=== PATIENT | female | born 1970 | race Caucasian/White ===

== ENCOUNTER → 2018-03-04 | Outpatient (CLI) | payer MEDICARE, OTHER ==
[~2018-03-04] MED LIST: BUPIVACAINE MPF 0.25% 10 ML VIAL. ONE; LIDOCAINE 1% PF 30 ML VIAL. ONE
== END ==
LOC: SURG 13:27
PROVIDERS: ATTEND Anesthesiology
DX: M47.816 Spondylosis without myelopathy or radiculopathy, lumbar region (principal); G47.30 Sleep apnea, unspecified; J32.9 Chronic sinusitis, unspecified; E78.5 Hyperlipidemia, unspecified; E07.89 Other specified disorders of thyroid; F32.9 Major depressive disorder, single episode, unspecified; Z87.39 Personal history of other diseases of the musculoskeletal system and connective tissue; Z90.710 Acquired absence of both cervix and uterus; Z90.49 Acquired absence of other specified parts of digestive tract; Z98.890 Other specified postprocedural states
CPT/HCPCS: 64493; 64494; J2001; J3490

== ENCOUNTER → 2018-07-01 | Outpatient (CLI) | payer MEDICARE, OTHER ==
[~2018-07-01] MED LIST changes: +IOHEXOL 300 MG/ML 50 ML VIAL. ONE
== END | disposition home or self-care (01) ==
LOC: SURG 15:10
PROVIDERS: ATTEND Anesthesiology
DX: M53.3 Sacrococcygeal disorders, not elsewhere classified (principal); M47.817 Spondylosis without myelopathy or radiculopathy, lumbosacral region; M79.1 Myalgia; I10 Essential (primary) hypertension; E78.5 Hyperlipidemia, unspecified; F41.9 Anxiety disorder, unspecified; K21.9 Gastro-esophageal reflux disease without esophagitis; E03.9 Hypothyroidism, unspecified; G43.909 Migraine, unspecified, not intractable, without status migrainosus; Z90.710 Acquired absence of both cervix and uterus; K58.9 Irritable bowel syndrome, unspecified; Z82.49 Family history of ischemic heart disease and other diseases of the circulatory system; Z79.899 Other long term (current) drug therapy; G89.4 Chronic pain syndrome; G47.33 Obstructive sleep apnea (adult) (pediatric); Z90.49 Acquired absence of other specified parts of digestive tract; Z98.890 Other specified postprocedural states
CPT/HCPCS: 20550; 77002; J2001; J3490; Q9967; 20605

== ENCOUNTER → 2018-07-22 | Outpatient (CLI) | payer MEDICARE, OTHER ==
[~2018-07-22] MED LIST changes: -BUPIVACAINE MPF 0.25% 10 ML VIAL. ONE; +BUPIVACAINE MPF 0.5% 30 ML VIAL. ONE; -IOHEXOL 300 MG/ML 50 ML VIAL. ONE; +LIDOCAINE 1% PF 2 ML VIAL. ONE; -LIDOCAINE 1% PF 30 ML VIAL. ONE
== END | disposition home or self-care (01) ==
LOC: SURG 14:44
PROVIDERS: ATTEND Anesthesiology
DX: M47.816 Spondylosis without myelopathy or radiculopathy, lumbar region (principal); F32.9 Major depressive disorder, single episode, unspecified; Z79.82 Long term (current) use of aspirin; Z79.899 Other long term (current) drug therapy; G47.33 Obstructive sleep apnea (adult) (pediatric); G62.9 Polyneuropathy, unspecified; M19.90 Unspecified osteoarthritis, unspecified site; Z90.710 Acquired absence of both cervix and uterus; Z98.890 Other specified postprocedural states; Z88.2 Allergy status to sulfonamides; Z88.5 Allergy status to narcotic agent; Z88.6 Allergy status to analgesic agent; Z88.8 Allergy status to other drugs, medicaments and biological substances
CPT/HCPCS: 64493; 64494; J3490

== ENCOUNTER → 2018-08-26 | Outpatient (CLI) | payer MEDICARE, OTHER ==
[~2018-08-26] MED LIST changes: +BUPIVACAINE MPF 0.25% 30 ML VIAL. ONE; -BUPIVACAINE MPF 0.5% 30 ML VIAL. ONE; +DEXAMETHASONE SOD PHOS 4 MG/ML VIAL ONE; +IOHEXOL 300 MG/ML 50 ML VIAL. ONE; -LIDOCAINE 1% PF 2 ML VIAL. ONE; +LIDOCAINE 1% PF 30 ML VIAL. ONE
== END | disposition home or self-care (01) ==
LOC: SURG 10:56
PROVIDERS: ATTEND Anesthesiology
DX: M53.3 Sacrococcygeal disorders, not elsewhere classified (principal); M54.5 Low back pain; M47.817 Spondylosis without myelopathy or radiculopathy, lumbosacral region; I10 Essential (primary) hypertension; E78.5 Hyperlipidemia, unspecified; K21.9 Gastro-esophageal reflux disease without esophagitis; E03.9 Hypothyroidism, unspecified; F41.9 Anxiety disorder, unspecified; M79.7 Fibromyalgia; K58.9 Irritable bowel syndrome, unspecified; G43.909 Migraine, unspecified, not intractable, without status migrainosus; G89.4 Chronic pain syndrome; Z90.710 Acquired absence of both cervix and uterus; Z79.899 Other long term (current) drug therapy; Z82.49 Family history of ischemic heart disease and other diseases of the circulatory system
CPT/HCPCS: 64999; J1100; J2001; J3490; Q9967

== ENCOUNTER → 2018-09-30 | Outpatient (CLI) | payer MEDICARE, OTHER | END | disposition home or self-care (01) | LOC: SURG 13:43 | PROVIDERS: ATTEND Anesthesiology | DX: M47.816 Spondylosis without myelopathy or radiculopathy, lumbar region (principal); I10 Essential (primary) hypertension; K58.9 Irritable bowel syndrome, unspecified; K21.9 Gastro-esophageal reflux disease without esophagitis; M79.7 Fibromyalgia; F41.9 Anxiety disorder, unspecified; Z90.710 Acquired absence of both cervix and uterus; Z88.2 Allergy status to sulfonamides; Z88.5 Allergy status to narcotic agent; Z88.6 Allergy status to analgesic agent; Z88.8 Allergy status to other drugs, medicaments and biological substances | CPT/HCPCS: 64493; 64494 ==

== ENCOUNTER → 2020-12-30 | Outpatient (CLI) | payer MEDICARE, OTHER ==
--- NOTE | 2020-12-30 11:50 | RAD ---
CT HEAD WITHOUT CONTRAST 12/30/2020 10:30 AM Indication: Reason: CHRONIC PERSISTENT FRONTAL HEADACHE / Spl. Instructions: / History: Comparison: None Procedure: Multidetector CT imaging of the head was performed without the administration of contrast. Findings: There is no evidence of acute intracranial hemorrhage. There is no evidence of acute territ orial infarction. Please note that CT is limited for evaluation of acute ischemia. No mass effect or midline shift is identified . The ventricles and basilar cisterns have an appropriate appearance. No abnormal extra-axial fluid collections are seen. No acute osseous changes are identified. Impression: No evidence of acute intracranial abnormality CT DOSING PQRS STATEMENT: One or more of the following individualized dose reduction techniques were utilized for this examinat ion: 1. Automated exposure control 2. Adjustment of the mA and/or kV according to patient size 3. Use of iterative reconstruction technique Electronically signed by: Vic Ashley MD (12/30/2020 11:48 AM) [id number]
== END ==
LOC: CT 10:20
DX: R51.9 Headache, unspecified (principal)
CPT/HCPCS: 70450

== ENCOUNTER 2021-01-09 10:14 | Observation (INO) | payer MEDICARE, OTHER ==
[~2021-01-09] VITALS: Ht 172.7 cm; Wt 114.0 kg
--- NOTE | 2021-01-09 10:55 | PHYS DOC ---
Past History Past Medical History: Other Past Surgical History: Cholecystectomy, Hysterectomy, Other Additional Past Surgical Histo: hernia repairs Alcohol Use: None Adult General Chief Complaint Chief Complaint: SLURRED SPEECH HPI HPI Patient is a 50yo female presenting from outpatient radiology visit for weakness. She was in the process of having a barium swallow study performed when she became weak, dizzy and diaphoretic. Nothing known made better or worse. She denied any pain besides baseline fribromyalgia pains. Timing of symptoms was constant and steady since onset. She was subsequently put onto an ER bed and transported into the ER for evaluation. She denies any recent changes in health or medication, no sick contacts, no recent travel or concerning ingestions. Denies fever, CP, SHOB, AP, dysuria or other focal neuro deficits. Review of Systems Review of Systems 14 point ROS were reviewed and found to be within normal limits, except as documented in this note. Allergies Allergies Allergies Coded Allergies Type Severity Reaction Last Updated Verified oxycodone Allergy Severe 01/09/21 Yes triamcinolone Allergy Mild Muscle deterioration 01/09/21 Yes iohexol Adverse Reaction Intermediate swelling in throat 01/09/21 Yes topiramate Adverse Reaction Intermediate severe neuropthy 01/09/21 Yes tramadol Adverse Reaction Mild nausea 01/09/21 Yes Uncoded Allergies Type Severity Reaction Last Updated Verified ANESTHETICS Allergy Severe stops breathing 01/09/21 CODIENE Allergy Severe 01/09/21 DERMEROL Allergy Severe forgets to breath 01/09/21 REGOLEN Allergy Severe SOB CP 01/09/21 RELPLAX Allergy Intermediate CP muscle weakness 01/09/21 Physical Exam Physical Exam Constitutional: Well developed, well nourished, pale and diaphoretic speaking in few word sentences HENT: Normocephalic, atraumatic, bilateral external ears normal, oropharynx moist, no oral exudates, nose normal. [] Eyes: PERRLA, EOMI, conjunctiva normal, no discharge. [] Neck: Normal range of motion, no tenderness, supple, no stridor. [] Cardiovascular:Heart rate regular rhythm, no murmur [] Lungs & Thorax: Bilateral breath sounds clear to auscultation [] Abdomen: Bowel sounds normal, soft, no tenderness, no masses, no pulsatile masses. [] Skin: Warm, clammy, no erythema, no rash. [] Back: No tenderness, no CVA tenderness. [] Extremities: No tenderness, no cyanosis, no clubbing, ROM intact, no edema. [] Neurologic: Alert and oriented X 3, normal motor function, normal sensory function, no focal deficits noted. CN 2-12 intact. Slowed speech production without slurring or other concerning abnormalities. NIHSS 0 [] Psychologic: Odd affect, mood normal. [] Current Patient Data Vital Signs Vital Signs Date Time Temp Pulse Resp B/P (MAP) Pulse Ox O2 Delivery O2 Flow Rate FiO2 01/09/21 10:18 98.1 76 20 139/81 (100) 95 Room Air Lab Results Laboratory Tests Test 01/09/21 10:17 Glucose (Fingerstick) 110 mg/dL (70-99) H EKG EKG EKG ordered and interpreted by myself at 1055 hrs. as sinus rhythm at 72 bpm, QTC 451 otherwise unremarkable intervals, no axis deviation, no acute ischemic findings, no STEMI Radiology/Procedures Radiology/Procedures PROCEDURE: PORTABLE CHEST 1V Single view of the chest. 01/09/2021 11:10 AM Indication: Reason: AMS / Spl. Instructions: / History: Comparison: 2 views of the chest November 20, 2011 Findings: There is no pneumothorax or pleural effusion no focal infiltrate is seen. Heart size is normal. Oral contrast appears to be present within the distal esophagus but is poorly visualized. Small bowel series from same day noted in the PACS. Postoperative changes to the right shoulder noted. No acute osseous changes are identified. IMPRESSION: No radiographic evidence of acute cardiopulmonary process Electronically signed by: Vic Ashley MD (01/09/2021 11:38 AM) [id number] Heart Score C/O Chest Pain: No HEART Score for Chest Pain: HEART Score for Chest Pain Response (Comments) Value History Moderately Suspicious 1 ECG Normal 0 Age >45 - < 65 1 Risk Factors 1 or 2 Risk Factors 1 Troponin < Normal Limit 0 Total 3 Risk Factors: Risk Factors: DM, Current or recent (<one month) smoker, HTN, HLP, family history of CAD, obesity. Risk Scores: Risk Factors: DM, Current or recent (<one month) smoker, HTN, HLP, family history of CAD, obesity. Course & Med Decision Making Course & Med Decision Making Hemodynamically stable patient with history and physical exam concerning for near-syncope. Comprehensive workup performed and grossly non-concerning presented at bedside and confirms HPI. States patient had been NPO prior to study. Admits patient has had self limiting episodes like this in the past and has seen [facility] and other numerous specialists without answers General concern for discharge home given that patient is not back at baseline. As such, I recommended hospital admission given ongoing weakness and inability to care for self or for to fully care for patient I discussed case with Dr. Mandujano who accepted patient under his care for observation at [facility] I updated patient and on proposed plan of care and they were amenable, all questions and concerns addressed prior to ED departure from transport to [facility] for admission Dragon Disclaimer Dragon Disclaimer This electronic medical record was generated, in whole or in part, using a voice recognition dictation system. Departure Departure: Impression: Primary Impression: Near syncope Additional Impression: Weakness Disposition: 09 ADMITTED INPT THIS HOSP Admitting Physician: Ayana Mandujano Condition: STABLE Referrals: TACOS VANEGAS (PCP) Problem Qualifiers LINDSAY NUNN DO Jan 09, 2021 10:55
[2021-01-09] MEDS ORDERED: IV NORMAL SALINE 1,000ML 1,000 ML IV ONE (11:00)
[2021-01-09 11:09] LABS: CREATININE 0.9 mg/dL (0.6-1.0); GFR 66.8; POTASSIUM 4.6 mmol/L (3.5-5.1)
[2021-01-09 11:21] LABS: ALBUMIN 3.8 g/dL (3.4-5.0); ALBUMIN/GLOBULIN RATIO 1.2 (1.0-1.7); TOTAL BILIRUBIN 0.2 mg/dL (0.2-1.0)
[2021-01-09 11:29] LABS: BASO % 1 % (0-3); EOS # 0.1 x10^3/uL (0.0-0.7); EOS % 2 % (0-3); HEMATOCRIT 37.6 % (36.0-47.0); HEMOGLOBIN 12.8 g/dL (12.0-15.5); LYMPH # 2.7 x10^3/uL (1.0-4.8); LYMPH % 39 % (24-48); MEAN CORPUSCULAR HEMOGLOBIN 31 pg (25-35); MEAN CORPUSCULAR HGB CONC 34 g/dL (31-37); MEAN CORPUSCULAR VOLUME 90 fL (79-100); MONO # 0.6 x10^3/uL (0.0-1.1); MONO % 9 % (0-9); NEUT # 3.5 x10^3uL (1.8-7.7); NEUT % 50 % (31-73); PLATELET COUNT 237 x10^3/uL (140-400); RED BLOOD COUNT 4.19 x10^6/uL (3.50-5.40); RED CELL DISTRIBUTION WIDTH 13.1 % (11.5-14.5)
--- NOTE | 2021-01-09 11:40 | RAD ---
Single view of the chest. 01/09/2021 11:10 AM Indication: Reason: AMS / Spl. Instructions: / History: Comparison: 2 views of the chest November 20, 2011 Findings: There is no pneumothorax or pleural effusion no focal infiltrate is seen. Heart size is nor mal. Oral contrast appears to be present within the distal esophagus but is poorly visualized. Small bowel series from same day noted in the PACS. Postoperative changes to the right shoulder noted. No a cute osseous changes are identified. IMPRESSION: No radiographic evidence of acute cardiopulmonary process Electronically signed by: Vic Ashley MD (01/09/2021 11:38 AM) [id number]
[2021-01-09 13:54] VITALS: BP 123/82
[2021-01-09 14:46] VITALS: BP 97/55
[2021-01-09 14:47] VITALS: BP 51/36
[2021-01-09] MEDS ORDERED: LEVE10007 PO (14:49)
[2021-01-09] MEDS ORDERED: PANT40TA6 PO (14:49)
[2021-01-09] MEDS ORDERED: MELA10TA2 PO (14:49)
[2021-01-09] MEDS ORDERED: GABA600T7 PO (14:49)
[2021-01-09] MEDS ORDERED: CLON1TAB PO (14:49)
[2021-01-09] MEDS ORDERED: ZOLP12.52 PO (14:49)
[2021-01-09] MEDS ORDERED: ATOR10TA60 PO (14:49)
[2021-01-09] MEDS ORDERED: CELE100C PO (14:49)
[2021-01-09] MEDS ORDERED: VENL225T PO (14:49)
[2021-01-09] MEDS ORDERED: DOCU100T5 PO (14:49)
[2021-01-09] MEDS ORDERED: LINA290C PO (14:49)
[2021-01-09] MEDS ORDERED: OXYC1TAB22 PO (14:49)
[2021-01-09] MEDS ORDERED: DEXT20TA2 PO (14:49)
[2021-01-09] MEDS ORDERED: CLON-276 PO (14:49)
[2021-01-09] MEDS ORDERED: CYAN500T17 PO (14:49)
[2021-01-09] MEDS ORDERED: CALC-31 PO (14:49)
[2021-01-09] MEDS ORDERED: METO-239 PO (14:49)
[2021-01-09] MEDS ORDERED: AZEL137S3 NS (14:49)
[2021-01-09] MEDS ORDERED: LEVO50TA5 PO (14:49)
--- NOTE | 2021-01-09 14:54 | EKG ---
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
[2021-01-09] MEDS ORDERED: AZELASTINE NASAL SPRAY 30ML BOTTLE. NS PRN (16:30)
[2021-01-09] MEDS ORDERED: DOCUSATE SODIUM 100 MG CAPSULE PO PRN (16:45)
[2021-01-09] MEDS: oxyCODONE/APAP 10/325 1 TAB TABLET PO PRN ×2 (16:58→21:06)
[2021-01-09] MEDS ORDERED: ZOLPIDEM 5 MG TABLET. PO PRN (17:00)
[2021-01-09] MEDS: IV NORMAL SALINE 1,000ML 1,000 ML IV SCH (17:05)
--- NOTE | 2021-01-09 17:32 | HP ---
ADMIT DATE: 01/09/2021 HISTORY OF PRESENT ILLNESS: The patient is a 50-year-old female patient who apparently was at [facility] x-ray department for a barium swallow that was ordered by Dr. Thorpe as the patient has severe adhesions and apparently this procedure was ordered to decide whether she needs any surgical intervention, adhesion lysis. She apparently drank her barium and they took few pictures and then the patient became very sweaty, trouble talking and walking and therefore, she was sent down to the Emergency Room for further evaluation and treatment. She was extensively investigated and has had lab work as well as imaging and was admitted for further evaluation. According to her, she has been n.p.o. from midnight last night and she has not eaten or drank anything in preparation for this barium swallow and follow through. PAST MEDICAL HISTORY: Significant for chronic abdominal pain that has been going on since he was a teenager. She has irritable bowel syndrome and chronic constipation. Apparently, she has had left ovary removed in April [address] Irma Ortiz at [facility] and since then, her pain has worsened. According to her she has not had any bowel movement for the last 4 days and about half an hour ago she had only small liquidy bowel movement. PAST MEDICAL HISTORY: Significant for hypertension, hyperlipidemia, irritable bowel syndrome, chronic pain syndrome, chronic fatigue syndrome, fibromyalgia, fatty liver, hypothyroidism, obstructive sleep apnea, and obesity hypoventilation syndrome. 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 PAST SURGICAL HISTORY: Significant for 2 hiatal hernias. She has cholecystectomy, total abdominal hysterectomy, 6 laparoscopic surgery for endometriosis. 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 ALLERGIES: THE PATIENT HAS AN EXTENSIVE LIST OF ALLERGIES INCLUDING ANESTHETICS, ____ CODEINE, ELETRIPTAN, IOHEXOL, LEVOFLOXACIN, MEPERIDINE, METHADONE, METOCLOPRAMIDE, OXYCODONE, TIZANIDINE, TOPIRAMATE, TRAMADOL AND TRIAMCINOLONE. MEDICATIONS: She is currently on following medications: She is on atorvastatin calcium 10 mg once a day, clonidine 0.2 mg twice a day, metoprolol succinate 25 mg once a day, Celebrex 100 mg once a day, oxycodone/APAP 10/325 one tablet every 4 hours as needed. She is on clonazepam 1 mg 3 times a day, gabapentin 600 mg twice a day, levetiracetam 1000 mg twice a day, venlafaxine 225 mg daily, dextromethorphan for Adderall 20 mg daily. She is on Ambien 12.5 mg at bedtime. She is on calcium carbonate with vitamin D3 1 tablet twice a day, azelastine 2 sprays to each nostril twice a day, Colace 100 mg twice a day, Protonix 40 mg twice a day, linaclotide or Linzess 290 mcg capsules daily, levothyroxine sodium 50 mcg once a day, cyanocobalamin for vitamin B12 500 mcg once a day. She is on melatonin 10 mg at bedtime. FAMILY HISTORY: She has one half-sister. Her father at the age of 42 because of myocardial infarction. Mother is still alive at the age of 78 and she has peripheral vascular disease, coronary artery disease, and skin cancer. SOCIAL HISTORY: She is , has 1 son. She never smoked, does not drink alcohol or use any recreational drugs. 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 However, she is disabled since she was with her son. REVIEW OF SYSTEMS: The patient denied any blurring of vision, cataract, glaucoma or macular degeneration. Denied any earache, tinnitus or sensorineural deafness. Denied any nosebleeds, stuffy nose or postnasal drip. Denied any sore throat, sore tongue, toothache. Does have hoarseness of voice, but denied any nausea or vomiting, diarrhea. She did have obviously chronic constipation. Denied any dysuria, frequency or hematuria. Denied any chest pain, shortness of breath. Did complain of near syncope and weakness. PHYSICAL EXAMINATION: GENERAL: On arrival to the Emergency Room, the patient looked well and was clearly in no apparent respiratory distress. No pallor, jaundice, cyanosis or thyromegaly. No jugular venous distension. No limb edema. VITAL SIGNS: Her heart rate was 76, blood pressure was 139/81, temperature was 98.1, respiratory rate 20, and oxygen saturation was 95% on room air. HEAD, EYES, EARS, NOSE AND THROAT: Showed normocephalic, atraumatic. NECK: Supple. HEART: Showed normal first and second heart sounds. No gallop, rub or murmur. CHEST: Clear to auscultation. No crepitation or rhonchi. ABDOMEN: Distended, soft, nontender. No guarding or rigidity. No organomegaly. All hernial orifice intact. Bowel sounds normal. NEUROLOGIC: She was awake, alert, responding appropriately. All cranial nerves intact. EXTREMITIES: She moves extremities without difficulty. She does have hoarseness of voice. LABORATORY DATA: Showed a white cell count 7000, hemoglobin 12.8, hematocrit 37.6, MCV 90 and platelet count 237,000 with normal manual differential. Her chemistry showed a serum sodium 141, potassium 4.6, chloride 105, bicarbonate 30, anion gap of 6, BUN 10, creatinine 0.9, estimated GFR was 66 mL per minute. Her glucose 105, calcium was 9. Total bilirubin, AST, ALT, alkaline phosphatase were normal. Her ammonia was less than 10. Her total protein was 7, albumin was 3.8. Her chest x-ray showed there is no pneumothorax, pleural effusion, no focal infiltrate is seen. Heart size is normal. Oral contrast appears to be present within the distal esophagus, but is poorly visualized. Small bowel loop series from same day noted in the ____, postoperative changes to the right shoulder noted. No acute osseous changes are identified. The patient was admitted with near syncope and generalized weakness. She has received 1 liter of normal saline. I will continue with IV fluid. I reconciled all her medications. We will continue with IV fluid and decide the further management accordingly. ANN POTTER MD DR: WILLIAM/bayron JOB#: [id number] / [id number]
[2021-01-09 19:20] VITALS: BP 149/93
[2021-01-09] MEDS ORDERED: ATORVASTATIN CALCIUM 10 MG TABLET. PO SCH (21:00)
[2021-01-09] MEDS ORDERED: MELATONIN 3 MG TABLET PO SCH (21:00)
[2021-01-09] MEDS: cloNIDine HCL 0.2 MG TABLET PO SCH (21:05)
[2021-01-09] MEDS: clonazePAM 1 MG TABLET PO SCH (21:05)
[2021-01-09] MEDS: levETIRAcetam 500 MG TABLET PO SCH (21:05)
[2021-01-09] MEDS: GABAPENTIN 300 MG CAPSULE. PO SCH (21:06)
[2021-01-09] MEDS: PANTOPRAZOLE 40 MG TABLET. PO SCH (21:06)
[2021-01-09] MEDS: CALCIUM CARB/VIT D3 500/200 TABLET PO SCH (21:06)
[2021-01-09] MEDS: VENLAFAXINE 75 MG TABLET. PO SCH (21:10)
[2021-01-09] MEDS: LUBIPROSTONE 24 MCG CAPSULE PO SCH (21:10)
[2021-01-09 21:29] VITALS: BP 148/96
[2021-01-09 23:07] VITALS: BP 133/80
[2021-01-09 23:31] LABS: BILIRUBIN,URINE NEG (NEG); CLARITY,URINE CLEAR; COLOR,URINE YELLOW; GLUCOSE,URINE NEG (NEG); NITRITE,URINE NEG (NEG); UROBILINOGEN,URINE 0.2 mg/dL (0.2 mg/dL)
[2021-01-09 23:35] LABS: BACTERIA,URINE 0 /HPF (0-FEW); RBC,URINE 0 /HPF (0-2); SQUAMOUS EPITHELIAL CELL,UR FEW /LPF; WBC,URINE RARE /HPF (0-4)
[2021-01-09 23:37] LABS: BARBITURATES NEG (NEG); BENZODIAZEPINES NEG (NEG); CANNABINOIDS NEG (NEG); COCAINE NEG (NEG); METHADONE NEG (NEG); OPIATES NEG (NEG); PHENCYCLIDINE NEG (NEG)
[2021-01-09 23:39] LABS: AMPHETAMINE/METHAMPHETAMINE NEG (NEG)
[2021-01-10] MEDS: oxyCODONE/APAP 10/325 1 TAB TABLET PO PRN ×4 (02:11→15:42)
[2021-01-10] MEDS: IV NORMAL SALINE 1,000ML 1,000 ML IV SCH (02:45)
[2021-01-10 05:16] VITALS: BP 139/72
[2021-01-10] MEDS ORDERED: LEVOTHYROXINE 50 MCG TABLET PO SCH (06:00)
[2021-01-10 07:00] LABS: HEMATOCRIT 37.8 % (36.0-47.0); HEMOGLOBIN 12.5 g/dL (12.0-15.5); RED BLOOD COUNT 4.19 x10^6/uL (3.50-5.40); RED CELL DISTRIBUTION WIDTH 13.4 % (11.5-14.5); WHITE BLOOD COUNT 7.5 x10^3/uL (4.0-11.0)
[2021-01-10 07:19] LABS: ALBUMIN 3.3 g/dL (3.4-5.0); C REACTIVE PROTEIN 2.3 mg/L (0-3.3); CALCIUM 8.7 mg/dL (8.5-10.1); CREATININE 0.8 mg/dL (0.6-1.0); GFR 76.6; POTASSIUM 4.1 mmol/L (3.5-5.1); TOTAL BILIRUBIN 0.4 mg/dL (0.2-1.0); TOTAL PROTEIN 6.6 g/dL (6.4-8.2)
[2021-01-10] MEDS: GABAPENTIN 300 MG CAPSULE. PO SCH (08:17)
[2021-01-10] MEDS: levETIRAcetam 500 MG TABLET PO SCH (08:17)
[2021-01-10] MEDS: clonazePAM 1 MG TABLET PO SCH ×2 (08:17→15:43)
[2021-01-10] MEDS: CALCIUM CARB/VIT D3 500/200 TABLET PO SCH (08:17)
[2021-01-10] MEDS: PANTOPRAZOLE 40 MG TABLET. PO SCH (08:18)
[2021-01-10] MEDS: VENLAFAXINE 75 MG TABLET. PO SCH ×2 (08:18→15:43)
[2021-01-10] MEDS: LUBIPROSTONE 24 MCG CAPSULE PO SCH (08:18)
[2021-01-10] MEDS: cloNIDine HCL 0.2 MG TABLET PO SCH (08:18)
[2021-01-10] MEDS ORDERED: FLU VACC QS 2020-21(6MOS+)/PF 0.5 ML SYRINGE. VAX IM ONE (09:00)
[2021-01-10] MEDS ORDERED: NON FORMULARY ITEM (Dextroamphetamine/Amphetamine (Adderall 20 Mg Tablet) 1 TAB) PO SCH (09:00)
[2021-01-10] MEDS ORDERED: CYANOCOBALAMIN (VITAMIN B-12) 250 MCG TABLET. PO SCH (09:00)
[2021-01-10] MEDS ORDERED: CELECOXIB 100 MG CAPSULE PO SCH (09:00)
[2021-01-10] MEDS ORDERED: METOPROLOL SUCC 24HR ER 25 MG TAB.ER.24H. PO SCH (09:00)
[2021-01-10 10:25] VITALS: BP 143/79
--- NOTE | 2021-01-10 16:11 | DS ---
DATE OF DISCHARGE: 01/10/2021 HOSPITAL COURSE: The patient is a 50-year-old female patient who was seen initially at [facility] X-Ray Department for a barium swallow and follow-through ordered by Dr. Thorpe. The patient had severe abdominal pain due to adhesion and apparently this procedure was ordered to decide whether she needs any surgical intervention in the form of adhesiolysis. She apparently drank her barium and took few pictures and then the patient became very sweaty, having trouble talking and walking and, therefore, she was sent down to the Emergency Department for further evaluation. She was extensively investigated; however, all her lab work was mostly unremarkable. According to the patient, she has been n.p.o. from midnight the night before and she has not eaten or drank anything in preparation for this barium swallow. She was evaluated in the Emergency Room and she was treated with IV fluid and was continued on all her medications. She did very well. She is now eating and drinking. Apart from migraine headache, she denied any complaint. PHYSICAL EXAMINATION: GENERAL: When I saw her this afternoon, she looked well and was clearly in no apparent respiratory distress. No pallor, jaundice, or cyanosis. No lymphadenopathy, no thyromegaly. No jugular venous distention. No lower limb edema. VITAL SIGNS: Her heart rate was 79, blood pressure 143/79, temperature 97.4, respiratory rate 20, and oxygen saturation was 95%. HEAD, EYES, EARS, NOSE AND THROAT: Normocephalic, atraumatic. NECK: Supple. HEART: Showed normal first and second heart sounds. No gallop, rub, or murmur. CHEST: Clear to auscultation. No crepitation or rhonchi. ABDOMEN: Distended, soft, nontender. No guarding or rigidity. No organomegaly. All hernial orifices intact. Bowel sounds normal. NEUROLOGIC: She was awake, alert, and responding appropriately. All cranial nerves intact. EXTREMITIES: She moves extremities without difficulty. She ambulates without assistance or assistive devices. LABORATORY DATA: This morning showed a white cell count of 7500, hemoglobin 12.5, hematocrit 37.8, MCV 90, and platelet count 236,000. Her serum sodium was 142, potassium 4.1, chloride 105, bicarbonate 27, anion gap of 10, BUN 11, creatinine 0.8, estimated GFR was 76 mL per minute. Her glucose was 95, calcium was 8.7. Total bilirubin, AST, ALT, and alkaline phosphatase were normal. Total protein was 6.6, albumin was 3.3. Her ammonia was 11 and C-reactive protein was only 2.3. Urinalysis essentially unremarkable and urine toxic screen was negative. DISCHARGE MEDICATIONS: The patient was discharged home to continue on all her medication including atorvastatin calcium 10 mg at bedtime, azelastine 2 sprays to each nostril twice a day, calcium carbonate with vitamin D one tablet twice a day, Celebrex 100 mg daily, clonazepam for Klonopin 1 mg tablet three times a day, clonidine 0.2 mg twice a day. She is on Adderall 20 mg daily, Colace 100 mg twice a day, gabapentin 600 mg twice a day, levetiracetam 1000 mg twice a day, levothyroxine sodium 50 mcg once a day, linaclotide Linzess 290 mcg once a day, melatonin 10 mg at bedtime, metoprolol succinate 25 mg daily, oxycodone/APAP 10/325 one tablet every 4 hours, Protonix 40 mg once a day, venlafaxine 225 mg once a day, and zolpidem tartrate 12.5 mg at bedtime. FINAL DISCHARGE DIAGNOSES: 1. Dizziness and lightheadedness improved. 2. The patient has a multitude of medical problems including: A. Hypertension. B. Hyperlipidemia. C. Irritable bowel syndrome. D. Chronic pain syndrome. E. Chronic fatigue syndrome. F. Fibromyalgia. G. Fatty liver. H. Hypothyroidism. I. Obstructive sleep apnea and obesity hypoventilation syndrome. ANN POTTER MD DR: WILLIAM/bayron JOB#: [id number] / [id number]
== END 2021-01-10 16:30 | disposition home or self-care (01) ==
LOC: ER 10:14 → 1 SOUTH 11:50
PROVIDERS: ADMIT Internal Medicine; ATTEND Internal Medicine
DX: R55 Syncope and collapse (principal); R53.1 Weakness; K58.9 Irritable bowel syndrome, unspecified; K59.00 Constipation, unspecified; I10 Essential (primary) hypertension; K76.0 Fatty (change of) liver, not elsewhere classified; G47.33 Obstructive sleep apnea (adult) (pediatric); E66.01 Morbid (severe) obesity due to excess calories; E03.9 Hypothyroidism, unspecified; E78.5 Hyperlipidemia, unspecified; M79.7 Fibromyalgia; G89.4 Chronic pain syndrome; Z68.38 Body mass index [BMI] 38.0-38.9, adult; Z90.710 Acquired absence of both cervix and uterus; Z90.721 Acquired absence of ovaries, unilateral; Z93.4 Other artificial openings of gastrointestinal tract status; Z90.49 Acquired absence of other specified parts of digestive tract; Z98.890 Other specified postprocedural states; Z79.899 Other long term (current) drug therapy; Z23 Encounter for immunization
CPT/HCPCS: 36415; 71045; 80053; 80307; 81001; 82140; 82947; 83880; 84484; 85025; 85027; 86140; 90471; 90686; 93005; 96360; 96361; 99285; G0378; J7030; G0379

== ENCOUNTER → 2021-01-09 | Outpatient (CLI) | payer MEDICARE, OTHER ==
[~2021-01-09] MED LIST changes: +ATOR10TA60 PO; +AZEL137S3 NS; -BUPIVACAINE MPF 0.25% 30 ML VIAL. ONE; +CALC-31 PO; +CELE100C PO; +CLON-276 PO; +CLON1TAB PO; +CYAN500T17 PO; -DEXAMETHASONE SOD PHOS 4 MG/ML VIAL ONE; +DEXT20TA2 PO; +DOCU100T5 PO; +GABA600T7 PO; -IOHEXOL 300 MG/ML 50 ML VIAL. ONE; +LEVE10007 PO; +LEVO50TA5 PO; -LIDOCAINE 1% PF 30 ML VIAL. ONE; +LINA290C PO; +MELA10TA2 PO; +METO-239 PO; +OXYC1TAB22 PO; +PANT40TA6 PO; +VENL225T PO; +ZOLP12.52 PO
--- NOTE | 2021-01-09 17:09 | RAD ---
Small Bowel Series: History: Abdominal pain Comparison: None available FINDINGS: The preliminary film demonstrates moderate amount of stool identified in the colon. The bowel gas pat tern unremarkable.. Following administration of oral barium, images were performed at timed intervals . Examination is limited as the examination was terminated as patient went to the ER for dizziness.. The duodenal loop appears normal. The small bowel mucosal pattern is normal. There is no stricture or dilatation. The terminal ileum appears normal. Impression: Limited examination as described above. Electronically signed by: Kendrick Rondon MD (01/09/2021 5:07 PM) [id number]
== END ==
LOC: RAD 08:37
PROVIDERS: ATTEND Internal Medicine Gastroenterology
DX: R10.9 Unspecified abdominal pain (principal); K75.81 Nonalcoholic steatohepatitis (NASH)
CPT/HCPCS: 74250

== ENCOUNTER 2021-02-09 16:13 | Emergency (ER) | payer MEDICARE, OTHER ==
[~2021-02-09] VITALS: Ht 172.7 cm; Wt 110.5 kg
[2021-02-09] MEDS ORDERED: KETOROLAC 30 MG/ML VIAL. IVP ONE (17:15)
[2021-02-09] MEDS ORDERED: PROCHLORPERAZINE 10 MG/2 ML VIAL. IVP ONE (17:15)
[2021-02-09] MEDS ORDERED: diphenhydrAMINE 50 MG/ML VIAL IVP ONE (17:15)
[2021-02-09] MEDS ORDERED: FAMOTIDINE 20 MG/2 ML VIAL IVP ONE (17:15)
[2021-02-09] MEDS ORDERED: DEXAMETHASONE SOD PHOS 10 MG/ML VIAL. IVP ONE (17:15)
[2021-02-09] MEDS ORDERED: IV NORMAL SALINE 1,000ML 1,000 ML IV SCH (17:15)
--- NOTE | 2021-02-09 17:21 | PHYS DOC ---
Past History Past Medical History: Fibromyalgia, IBS Additional Past Medical Histor: esohageal narrowing, (JAMES RANGEL BLENDING OPERATOR) Past Surgical History: Cholecystectomy, Hysterectomy Additional Past Surgical Histo: hernia repair, Endometriosis, right shoulder surgery, wisdom teeth removal, (JAMES RANGEL BLENDING OPERATOR) Alcohol Use: None (JAMES RANGEL APRN) General Adult EDM: Chief Complaint: MULTIPLE COMPLAINTS HPI: HPI: Patient is a 50 year old female who presents with this starting this morning began having a left-sided frontal lobe headache that does not radiate and she states it is up there as the one of the worst headaches of her life. Patient also complains of right upper abdominal pain that sharp and dull type pain. There is no radiation of this pain. She states she is also vomiting and cannot keep down water. She states that she took Percocet today. (JAMES RANGEL BLENDING OPERATOR) Review of Systems: Review of Systems: Constitutional: Denies fever or chills Eyes: Denies change in visual acuity HENT: Denies nasal congestion or sore throat. + Sneezing Respiratory: Denies cough or shortness of breath Cardiovascular: Denies chest pain or edema GI: + abdominal pain, +nausea, +vomiting, denies bloody stools or diarrhea : Denies dysuria Musculoskeletal: Denies back pain or joint pain Integument: + Bilateral arms itchy rash Neurologic: +headache, denies focal weakness or sensory changes Endocrine: Denies polyuria or polydipsia Lymphatic: Denies swollen glands Psychiatric: Denies depression or anxiety (JAMES RANGEL APRN) Allergies: Allergies: Allergies Coded Allergies Type Severity Reaction Last Updated Verified Anesthetics - Amide Type - Select A Allergy Severe Stops breathing, pt doesn't know specific anesthetic 01/09/21 Yes Anesthetics - Jayde Type- Parabens Allergy Severe Stops breathing, pt doesn't know specific anesthetic 01/09/21 Yes codeine Allergy Severe 01/09/21 Yes meperidine Allergy Severe "forgets to breathe" 01/09/21 Yes metoclopramide Allergy Severe SOB, CP 01/09/21 Yes oxycodone Allergy Severe 01/09/21 Yes eletriptan Allergy Intermediate CP, MUSCLE WEAKNESS 01/09/21 Yes methadone Allergy Intermediate chest pain 01/09/21 Yes tizanidine Allergy Intermediate disorientation 01/09/21 Yes triamcinolone Allergy Mild Muscle deterioration 01/09/21 Yes iohexol Adverse Reaction Intermediate swelling in throat 01/09/21 Yes topiramate Adverse Reaction Intermediate severe neuropthy 01/09/21 Yes tramadol Adverse Reaction Mild nausea 01/09/21 Yes levofloxacin Adverse Reaction Unknown joint pain and swelling 01/09/21 Yes (JAMES RANGEL APRN) Physical Exam: PE: Constitutional: Well developed, well nourished, no acute distress, non-toxic appearance. [] HENT: Normocephalic, atraumatic, bilateral external ears normal, oropharynx moist, no oral exudates, nose normal. [] Eyes: PERRLA, EOMI, conjunctiva normal, no discharge. [] Neck: Normal range of motion, no tenderness, supple, no stridor. [] Cardiovascular:Heart rate regular rhythm, no murmur [] Lungs & Thorax: Bilateral breath sounds clear to auscultation [] Abdomen: Bowel sounds normal, soft, right upper quadrant and epigastric tenderness, no masses, no pulsatile masses. [] Skin: Warm, dry, no erythema, no rash. [] Back: No tenderness, no CVA tenderness. [] Extremities: No tenderness, no cyanosis, no clubbing, ROM intact, no edema. [] Neurologic: Alert and oriented X 3, normal motor function, normal sensory function, no focal deficits noted. [] Psychologic: Affect normal, judgement normal, mood normal. [] ([facility]) Current Patient Data: Vital Signs: Vital Signs Date Time Temp Pulse Resp B/P (MAP) Pulse Ox O2 Delivery O2 Flow Rate FiO2 02/09/21 16:47 97.7 115 18 157/104 (121) 98 Room Air ([facility]) EKG: EK AND READ BY DR LANG SINUS RHYTHM AND NO STEMI[] ([facility]) Radiology/Procedures: Radiology/Procedures: [] Impressions: [place] [address] IMAGING REPORT Signed PATIENT: LYNCAROL Wallis ACCOUNT: [id number] : 1970 LOCATION: ER AGE: 50 SEX: F EXAM STATUS: REG ER ORD. PHYSICIAN: JAMES RANGEL APRN REASON: epigastric tenderness, vomiting PROCEDURE: CT ABDOMEN PELVIS WO CONTRAST EXAM: Abdomen and pelvis CT without intravenous contrast. HISTORY: Epigastric pain. Vomiting. TECHNIQUE: Computed tomographic images of the abdomen and pelvis were obtained without contrast. Multiplanar reformatting was performed. *One or more of the following individualized dose reduction techniques were utilized for this examination: 1. Automated exposure control. 2. Adjustment of the mA and/or kV according to patient size. 3. Use of iterative reconstruction technique. COMPARISON: None. FINDINGS: Evaluation of the lower thorax demonstrates posterior dependent and basilar atelectasis. There is no infiltrate or pleural effusion. There is a small hiatal hernia. There are postoperative changes at the gastroesophageal junction. No hepatic lesion is seen. The gallbladder is absent. The pancreas, spleen and adrenal glands are unremarkable. The kidneys are unremarkable. There is no appendicitis. There is moderate colonic stool. There is no evidence of bowel obstruction. The bladder is unremarkable. The uterus is absent. The left ovary is likely absent. There are right ovarian cysts, the largest of which measures 2.7 cm. The aorta is normal in caliber. There is no lymphadenopathy. There is no suspicious osseous lesion. IMPRESSION: 1. Multiple small right ovarian cysts, largest which measures 2.7 cm. 2. Small hiatal hernia and postoperative changes at the gastroesophageal junction. 3. Moderate colonic stool. Electronically signed by: Sona Ruiz MD (02/09/2021 5:49 PM) [facility] DICTATED AND SIGNED BY: SONA RUIZ MD DATE: 02/09/211741 CC: JAMES RANGEL APRN; TACOS VANEGAS ~MTH0 [address] [place] [address] IMAGING REPORT Signed PATIENT: CAROL NICHOLSON ACCOUNT: [id number] : 1970 LOCATION: ER AGE: 50 SEX: F EXAM STATUS: REG ER ORD. PHYSICIAN: JAMES RANGEL APRN REASON: nausea, vomiting, pain PROCEDURE: PORTABLE CHEST 1V EXAM: Chest, single view. HISTORY: Nausea and vomiting. COMPARISON: 01/09/2021 FINDINGS: A frontal view of the chest is obtained. There is no infiltrate, pleural effusion or pneumothorax. The heart is normal in size. There are surgical anchors within the right humeral head. IMPRESSION: No acute pulmonary finding. Electronically signed by: Sona Ruiz MD (02/09/2021 5:42 PM) [facility] DICTATED AND SIGNED BY: SONA RUIZ MD DATE: 02/09/211740 CC: JMAES RANGEL APRN; TACOS VANEGAS ~MTH0 [address] [place] [address] IMAGING REPORT Signed PATIENT: CAROL NICHOLSON ACCOUNT: [id number] : 1970 LOCATION: ER AGE: 50 SEX: F EXAM STATUS: REG ER ORD. PHYSICIAN: JAMES RANGEL APRN REASON: headache PROCEDURE: CT HEAD WO CONTRAST EXAM: Head CT without contrast. HISTORY: Headache. TECHNIQUE: Computed tomographic images of the head were obtained without contrast. *One or more of the following individualized dose reduction techniques were utilized for this examination: 1. Automated exposure control. 2. Adjustment of the mA and/or kV according to patient size. 3. Use of iterative reconstruction technique. COMPARISON: 12/30/2020. FINDINGS: There is no acute or subacute extra-axial or intraparenchymal hemorrhage. There is no mass effect or midline shift. There is no hydrocephalus. There are areas of decreased attenuation within the cerebral white matter, nonspecific and likely related to chronic small vessel disease. There is cerebral volume loss. The visualized portions of the orbits, paranasal sinuses and mastoid air cells are unremarkable. No suspicious calvarial lesion is seen. IMPRESSION: No acute intracranial findings. Electronically signed by: Sona Ruiz MD (02/09/2021 5:40 PM) [facility] DICTATED AND SIGNED BY: SONA RUIZ MD DATE: 02/09/211738 CC: JAMES RANGEL APRN; TACOS VANEGAS ~MTH0 0 (JAMES RANGEL BLENDING OPERATOR) Heart Score: C/O Chest Pain: No Risk Factors: Risk Factors: DM, Current or recent (<one month) smoker, HTN, HLP, family history of CAD, obesity. Risk Scores: Score 0 - 3: 2.5% MACE over next 6 weeks - Discharge Home Score 4 - 6: 20.3% MACE over next 6 weeks - Admit for Clinical Observation Score 7 - 10: 72.7% MACE over next 6 weeks - Early Invasive Strategies (JAMES RANGEL APRN) Course & Med Decision Making: Course & Med Decision Making Pertinent Labs and Imaging studies reviewed. (See chart for details) See HPI. Alert and oriented x4. Ambulatory with steady gait. Right upper gastric abdominal tenderness but otherwise abdomen is soft and nontender. Speaks in full clear sentences. PERRLA. No focal weaknesses. No sensation loss. Denies any visual loss or change. Skin pink warm and dry. Patient has a pink rash that goes down the dorsal aspects of the arms bilaterally. She states not really bothering her but it is itchy. She does have allergies. Denies any chest pain, shortness of breath, fevers, nasal congestion, sore throat, cough, diarrhea, constipation, back pain, neck pain, focal weakness, numbness or tingling. Patient states her headache is better and she rates it at a 6 out of 10. She states her abdomen is better. CT and all radiology studies showed no acute findings. Blood work is unremarkable. Urinalysis is unremarkable. Patient is given two Fioricet will be discharged home with Fioricet and Zofran. Patient will be referred to a neurologist. Patient agrees to this care plan. [] (JAMES RANGEL BLENDING OPERATOR) Dragon Disclaimer: Dragon Disclaimer: This electronic medical record was generated, in whole or in part, using a voice recognition dictation system. (JAMES RANGEL BLENDING OPERATOR) Departure Departure: Impression: Primary Impression: Headache Qualified Codes: R51.9 - Headache, unspecified Additional Impressions: Nausea & vomiting Qualified Codes: R11.2 - Nausea with vomiting, unspecified Abdominal pain Qualified Codes: R10.11 - Right upper quadrant pain Disposition: HOME HEALTH CARE SERVICE Condition: STABLE Referrals: TACOS VANEGAS (PCP) PADMINI KILPATRICK MD, SCOTT S MD Patient Instructions: Migraine Headache, Nausea and Vomiting Additional Instructions: Follow-up with a neurologist or GI doctor or your primary care physician. Drink plenty of fluids. Rest. If your symptoms worsen return to emergency room. Scripts Butalb/Acetaminophen/Caffeine ([id number] 50-325-40) 1 Each Tablet 1 EACH PO Q4HRS PRN for HEADACHE, #20 TAB Prov: JAMES RANGEL APRN 02/09/21 Ondansetron (ONDANSETRON ODT) 4 Mg Tab.rapdis 1 TAB PO PRN Q6-8HRS, #20 TAB Prov: JAMES RANGEL APRN 02/09/21 Attending Signature Attending Signature I have reviewed the PA/MANAGER BENCH's note and plan of care. I was available for consultation as needed during the patient's visit in the emergency department. I agree with the clinical impression, plan, and disposition. (ALEX LANG DO) JAMES RANGEL APRN Feb 09, 2021 17:21 ALEX LANG DO Feb 10, 2021 00:57
--- NOTE | 2021-02-09 17:27 | EKG ---
[address] [address] Test Date: 2021-02-09 Test Time: 17:21:07 Pat Name: CAROL NICHOLSON Department: Room: Gender: F Sink Maker: CHELO : 1970 Requested By: JAMES RANGEL Order Number: [id number] Reading MD: Measurements Intervals [place] Rate: 95 P: 50 OR: 148 QRS: 41 QRSD: 86 T: 34 QT: 362 QTc: 458 Interpretive Statements SINUS RHYTHM NORMAL ECG RI6.02 No previous ECG available for comparison
--- NOTE | 2021-02-09 17:42 | RAD ---
EXAM: Head CT without contrast. HISTORY: Headache. TECHNIQUE: Computed tomographic images of the head were obtained without contrast. *One or more of the following individualized dose reduction techniques were utilized for this examina tion: 1. Automated exposure control. 2. Adjustment of the mA and/or kV according to patient size. 3. Use of iterative reconstruction technique. COMPARISON: 12/30/2020. FINDINGS: There is no acute or subacute extra-axial or intraparenchymal hemorrhage. There is no mass effect or midline shift. There is no hydrocephalus. There are areas of decreased attenuation within the cerebral white matter, nonspecific and likely rel ated to chronic small vessel disease. There is cerebral volume loss. The visualized portions of the orbits, paranasal sinuses and mastoid air cells are unremarkable. No s uspicious calvarial lesion is seen. IMPRESSION: No acute intracranial findings. Electronically signed by: Sona Pryor MD (02/09/2021 5:40 PM) [facility]
--- NOTE | 2021-02-09 17:44 | RAD ---
EXAM: Chest, single view. HISTORY: Nausea and vomiting. COMPARISON: 01/09/2021 FINDINGS: A frontal view of the chest is obtained. There is no infiltrate, pleural effusion or pneumo thorax. The heart is normal in size. There are surgical anchors within the right humeral head. IMPRESSION: No acute pulmonary finding. Electronically signed by: Sona Pryor MD (02/09/2021 5:42 PM) [facility]
--- NOTE | 2021-02-09 17:52 | RAD ---
EXAM: Abdomen and pelvis CT without intravenous contrast. HISTORY: Epigastric pain. Vomiting. TECHNIQUE: Computed tomographic images of the abdomen and pelvis were obtained without contrast. Mult iplanar reformatting was performed. *One or more of the following individualized dose reduction techniques were utilized for this examina tion: 1. Automated exposure control. 2. Adjustment of the mA and/or kV according to patient size. 3. Use of iterative reconstruction technique. COMPARISON: None. FINDINGS: Evaluation of the lower thorax demonstrates posterior dependent and basilar atelectasis. Th ere is no infiltrate or pleural effusion. There is a small hiatal hernia. There are postoperative alysha nges at the gastroesophageal junction. No hepatic lesion is seen. The gallbladder is absent. The panc reas, spleen and adrenal glands are unremarkable. The kidneys are unremarkable. There is no appendici tis. There is moderate colonic stool. There is no evidence of bowel obstruction. The bladder is unrem arkable. The uterus is absent. The left ovary is likely absent. There are right ovarian cysts, the la rgest of which measures 2.7 cm. The aorta is normal in caliber. There is no lymphadenopathy. There is no suspicious osseous lesion. IMPRESSION: 1. Multiple small right ovarian cysts, largest which measures 2.7 cm. 2. Small hiatal hernia and postoperative changes at the gastroesophageal junction. 3. Moderate colonic stool. Electronically signed by: Sona Pryor MD (02/09/2021 5:49 PM) [facility]
[2021-02-09 18:00] LABS: BACTERIA,URINE 0 /HPF (0-FEW); BILIRUBIN,URINE NEG (NEG); CLARITY,URINE CLEAR; COLOR,URINE YELLOW; GLUCOSE,URINE NEG (NEG); NITRITE,URINE NEG (NEG); RBC,URINE 0 /HPF (0-2); SQUAMOUS EPITHELIAL CELL,UR MANY /LPF; UROBILINOGEN,URINE 0.2 mg/dL (0.2 mg/dL); WBC,URINE 0 /HPF (0-4)
[2021-02-09 18:05] LABS: BASO # 0.1 x10^3/uL (0.0-0.2); BASO % 1 % (0-3); EOS # 0.1 x10^3/uL (0.0-0.7); EOS % 2 % (0-3); HEMATOCRIT 41.6 % (36.0-47.0); HEMOGLOBIN 14.2 g/dL (12.0-15.5); LYMPH % 34 % (24-48); MEAN CORPUSCULAR HEMOGLOBIN 30 pg (25-35); MEAN CORPUSCULAR HGB CONC 34 g/dL (31-37); MEAN CORPUSCULAR VOLUME 89 fL (79-100); MONO # 0.5 x10^3/uL (0.0-1.1); MONO % 6 % (0-9); NEUT % 57 % (31-73); PLATELET COUNT 273 x10^3/uL (140-400); RED BLOOD COUNT 4.67 x10^6/uL (3.50-5.40); RED CELL DISTRIBUTION WIDTH 12.9 % (11.5-14.5); WHITE BLOOD COUNT 8.7 x10^3/uL (4.0-11.0)
[2021-02-09 18:09] LABS: CALCIUM 9.6 mg/dL (8.5-10.1); CREATININE 0.9 mg/dL (0.6-1.0); GFR 66.8; POTASSIUM 3.9 mmol/L (3.5-5.1)
[2021-02-09 18:14] LABS: ALBUMIN 4.1 g/dL (3.4-5.0); ALBUMIN/GLOBULIN RATIO 1.2 (1.0-1.7); TOTAL BILIRUBIN 0.4 mg/dL (0.2-1.0); TOTAL PROTEIN 7.5 g/dL (6.4-8.2)
[2021-02-09] MEDS ORDERED: ONDA4TAB12 PO (18:58)
[2021-02-09] MEDS ORDERED: BUTA1TAB23 PO (18:58)
[2021-02-09] MEDS ORDERED: BUTALB/APAP/CAFEIN 50/325/40MG TABLET. PO ONE (19:00)
[2021-02-09 19:01] VITALS: BP 166/86
== END 2021-02-09 19:32 | disposition home health service (06) ==
LOC: ER 16:13
DX: R51.9 Headache, unspecified (principal); R10.11 Right upper quadrant pain; R11.2 Nausea with vomiting, unspecified; R10.13 Epigastric pain; M79.7 Fibromyalgia; K58.9 Irritable bowel syndrome, unspecified; Z90.49 Acquired absence of other specified parts of digestive tract; Z90.710 Acquired absence of both cervix and uterus; Z88.4 Allergy status to anesthetic agent; Z88.5 Allergy status to narcotic agent; Z88.1 Allergy status to other antibiotic agents; Z88.8 Allergy status to other drugs, medicaments and biological substances
CPT/HCPCS: 36415; 70450; 71045; 74176; 80053; 81001; 81025; 83690; 84484; 85025; 93005; 96361; 96374; 96375; 99285; J0780; J1100; J1200; J1885; J3490; J7030

== ENCOUNTER 2022-03-26 12:53 | Emergency (ER) | payer MEDICARE, OTHER ==
[~2022-03-26] VITALS: Ht 172.7 cm; Wt 105.7 kg
[~2022-03-26 12:53] MED LIST changes: +BUTA1TAB23 PO; +ONDA4TAB12 PO
[2022-03-26 14:00] VITALS: BP 100/74
--- NOTE | 2022-03-26 15:04 | PHYS DOC ---
Past History Past Medical History: Fibromyalgia, IBS Additional Past Medical Histor: esohageal narrowing, NEUROPATHY Past Surgical History: Cholecystectomy, Hysterectomy, Other Additional Past Surgical Histo: hernia repair, Endometriosis, right shoulder surgery, wisdom teeth removal, Alcohol Use: None General Adult EDM: Chief Complaint: SORE THROAT HPI: HPI: Patient is a 51-year-old female who presents to the emergency department today for sinus pressure, sore throat, nasal congestion, productive cough that been intermittent over the last 6 months. Patient reports that she has been on 2 rounds of antibiotics has not been on an antibiotic in the last 2 months. She is also used several uwzr-prw-jhyxwbe sinus medications. She reports that over the last 2 days she has noticed increase in her sore throat. She rates her pain 7 out of 10. She denies any fevers. She is also reporting right lower rib pain and she reports that her urine is more warm than it normally is and she is got decreased urination when she urinates. Patient denies dysuria, urinary frequency/urgency, injuries. Patient reports that she did see an ENT approximately 2 years ago who told her that her vocal cords are swollen but her sinuses appear normal. Patient has an outpatient CT scan of [place] Review of Systems: Review of Systems: Constitutional: see HPI HENT: see HPI Respiratory: see HPI : see HPI Musculoskeletal: see HPI Allergies: Allergies: Allergies Coded Allergies Type Severity Reaction Last Updated Verified Anesthetics - Amide Type - Select A Allergy Severe Stops breathing, pt doesn't know specific anesthetic 01/09/21 Yes Anesthetics - Jayde Type- Parabens Allergy Severe Stops breathing, pt doesn't know specific anesthetic 01/09/21 Yes codeine Allergy Severe 01/09/21 Yes meperidine Allergy Severe "forgets to breathe" 01/09/21 Yes metoclopramide Allergy Severe SOB, CP 01/09/21 Yes oxycodone Allergy Severe 01/09/21 Yes eletriptan Allergy Intermediate CP, MUSCLE WEAKNESS 01/09/21 Yes methadone Allergy Intermediate chest pain 01/09/21 Yes tizanidine Allergy Intermediate disorientation 01/09/21 Yes triamcinolone Allergy Mild Muscle deterioration 01/09/21 Yes Sulfa (Sulfonamide Antibiotics) Allergy Unknown 03/26/22 Yes iohexol Adverse Reaction Intermediate swelling in throat 01/09/21 Yes topiramate Adverse Reaction Intermediate severe neuropthy 01/09/21 Yes tramadol Adverse Reaction Mild nausea 01/09/21 Yes levofloxacin Adverse Reaction Unknown joint pain and swelling 01/09/21 Yes Physical Exam: PE: Constitutional: Well developed, well nourished, no acute distress, non-toxic appearance. [] HENT: Normocephalic, atraumatic, bilateral external ears normal, no tonsillar enlargement or erythema, no postnasal drainage, uvula midline, no postnasal drainage, no trismus, oropharynx moist, no oral exudates, nose normal. [] Eyes: PERRL, EOMI, conjunctiva normal, no discharge. [] Neck: Normal range of motion, no tenderness, supple, no stridor. [] Cardiovascular:Heart rate regular rhythm, no murmur [] Lungs & Thorax: Bilateral breath sounds clear to auscultation [] Abdomen: Soft and obese Skin: Warm, dry, no erythema, no rash. [] Back: No tenderness, normal range of motion Extremities: No tenderness, no cyanosis, no clubbing, ROM intact, no edema. [] Neurologic: Alert and oriented X 3, normal motor function, normal sensory function, no focal deficits noted. [] Psychologic: Affect normal, judgement normal, mood normal. [] Current Patient Data: Labs: Laboratory Tests Test 03/26/22 14:53 03/26/22 14:55 Influenza Type A (Rapid) Negative Influenza Type B (Rapid) Negative SARS-CoV-2 Antigen (Rapid) Negative Group A Streptococcus Rapid Negative Urine Collection Type Unknown Urine Color Yellow Urine Clarity Clear Urine pH 7.0 Urine Specific [place] 1.020 Urine Protein Neg Urine Glucose (UA) Neg mg/dL Urine Ketones (Stick) Neg mg/dL Urine Blood Neg Urine Nitrite Neg Urine Bilirubin Neg Urine Urobilinogen Dipstick 0.2 mg/dL Urine Leukocyte Esterase Neg Urine RBC 0 /HPF Urine WBC 0 /HPF Urine Squamous Epithelial Cells Occ /LPF Urine Bacteria 0 /HPF Vital Signs: Vital Signs Date Time Temp Pulse Resp B/P (MAP) Pulse Ox O2 Delivery O2 Flow Rate FiO2 03/26/22 14:00 98.1 64 20 100/74 (83) 100 Room Air EKG: EKG: [] Radiology/Procedures: Radiology/Procedures: [] Heart Score: C/O Chest Pain: N/A Risk Factors: Risk Factors: DM, Current or recent (<one month) smoker, HTN, HLP, family history of CAD, obesity. Risk Scores: Score 0 - 3: 2.5% MACE over next 6 weeks - Discharge Home Score 4 - 6: 20.3% MACE over next 6 weeks - Admit for Clinical Observation Score 7 - 10: 72.7% MACE over next 6 weeks - Early Invasive Strategies Course & Med Decision Making: Course & Med Decision Making Pertinent Labs and Imaging studies reviewed. (See chart for details) [] Patient resents the emergency department for a 6-month history of sore throat , nasal congestion, sinus pressure and productive cough. Patient has been evaluated by an ENT told her that her vocal cords were swollen and her sinuses appear normal. She has a outpatient order for CT imaging of her sinuses by her primary care provider. Patient will be tested for influenza, COVID and strep. Patient is reporting right lower rib pain with decreased urination and increased urine temperature. Patient had a urinalysis performed in the emergency department. Work-up in the ER was unremarkable. Patient be discharged home with a steroid. She reports that she tolerates Medrol Dosepaks. She is advised to follow-up with ENT. I discussed with patient all findings and diagnostic testing as well as the need to follow-up with PCP for further evaluation and treatment or return to the ER if any new or worsening symptoms. Strict return precautions were also discussed at length. Patient voiced understanding and agreement with the plan. Patient is hemodynamically stable at the time of disposition. Dragon Disclaimer: Dragyogesh Disclaimer: This electronic medical record was generated, in whole or in part, using a voice recognition dictation system. Departure Departure: Impression: Primary Impression: Sore throat Additional Impression: Nasal congestion Disposition: HOME / SELF CARE / HOMELESS Condition: GOOD Referrals: TACOS VANEGAS (PCP) Patient Instructions: Sore Throat Additional Instructions: You are seen in the emergency department today for sore throat, nasal congestion and cough. You had negative influenza, COVID and strep testing. Your urinalysis did not show any urinary tract infection. Please continue taking [id number]-[id number] medications for nasal congestion. Increase your fluids. He can perform warm salt or gargles. You are being discharged home with steroid will help with sinus inflammation. Please follow-up with the ENT that you have previously seen regarding your chronic symptoms. Return to the emergency department if develop shortness of breath, chest pain, high fevers refractory to treatment, inability to maintain your secretions. Scripts Methylprednisolone (MEDROL) 4 Mg Tab.ds.pk 1 PKG PO UD for inflammation, #1 PKG 0 Refills Prov: LEE CARUSO APRN 03/26/22 LEE CARUSO APRN March 26, 2022 15:04
[2022-03-26 15:51] LABS: INFLUENZA A PATIENT NEGATIVE (NEGATIVE); INFLUENZA B PATIENT NEGATIVE (NEGATIVE)
[2022-03-26 15:52] LABS: BACTERIA,URINE 0 /HPF (0-FEW); CLARITY,URINE CLEAR; COLOR,URINE YELLOW; GLUCOSE,URINE NEG (NEG); NITRITE,URINE NEG (NEG); RBC,URINE 0 /HPF (0-2); SQUAMOUS EPITHELIAL CELL,UR OCC /LPF; UROBILINOGEN,URINE 0.2 mg/dL (0.2 mg/dL); WBC,URINE 0 /HPF (0-4)
[2022-03-26] MEDS ORDERED: METH4TAB2 PO (16:03)
== END 2022-03-26 16:15 | disposition home or self-care (01) ==
LOC: ER 12:53
DX: J02.9 Acute pharyngitis, unspecified (principal); R09.81 Nasal congestion; R05.9 Cough, unspecified; M79.7 Fibromyalgia; Z20.822 Contact with and (suspected) exposure to COVID-19; Z88.4 Allergy status to anesthetic agent; Z88.5 Allergy status to narcotic agent; Z88.8 Allergy status to other drugs, medicaments and biological substances; Z88.1 Allergy status to other antibiotic agents; Z88.2 Allergy status to sulfonamides
CPT/HCPCS: 81001; 87070; 87428; 87880; 99283